=== PATIENT | female | born 1985 | race American Indian/Alaskan Native ===

== ENCOUNTER 2016-06-12 07:25 | Day surgery (SDC) | payer MEDICAID ==
[2016-06-12] MEDS ORDERED: NACL BACTERIOSTATIC INFILTRATI ONE (08:10)
[2016-06-12] MEDS ORDERED: PERCOCET 5/325 PO PRN (08:26)
[2016-06-12] MEDS ORDERED: SUBLIMAZE ONE (08:28)
[2016-06-12] MEDS ORDERED: XYLOCAINE MPF 2% ONE (08:28)
[2016-06-12] MEDS ORDERED: ZOFRAN ONE (08:28)
[2016-06-12] MEDS ORDERED: DECADRON ONE (08:28)
--- NOTE | 2016-06-12 08:28 | Anesthesia Consultation ---
Anesthesia Consult and Med Hx Date of service: 06/12/16 - Airway Anesthetic Teeth Evaluation: Good ROM Head & Neck: Adequate Mental/Hyoid Distance: Adequate Mallampati Class: Class II Intubation Access Assessment: Probably Good - Pulmonary Exam CTA: Yes - Cardiac Exam Cardiac Exam: RRR - Pre-Operative Health Status ASA Pre-Surgery Classification: ASA2 Proposed Anesthetic Plan: General - Pulmonary Hx Smoking: Yes (STOPPED X 7 MONTHS-1 PPD X 10 YRS) Hx Asthma: Yes (INHALER PRN) COPD: No Hx Pneumonia: No Hx Sleep Apnea: No (EVA PRE SCREEN LOW RISK) - Cardiovascular System Hx Hypertension: No Hx Heart Murmur: Yes ("SLIGHT"- CAUSES NO PROBLEMS) - Central Nervous System Hx Psychiatric Problems: No - Gastrointestinal Hx Gastroesophageal Reflux Disease: Yes - Endocrine Hx End Stage Renal Disease: No - Hematic Hx Anemia: Yes - Other Systems Hx Alcohol Use: No Hx Substance Use: Yes (MARIJUANA WEEKLY) Hx Cancer: No
--- NOTE | 2016-06-12 08:28 | Anesthesia Day of Surgery ---
Anesthesia Day of Surgery - Day of Surgery Patient Examined: Yes Patient H&P Reviewed: Yes Patient is NPO: Yes
[2016-06-12] MEDS ORDERED: DIPRIVAN 10 MG/ML IV ONE (08:29)
[2016-06-12 08:37] LABS: Hematocrit 36.4 % (30.3-42.9); Hemoglobin 11.6 gm/dl (10.1-14.3)
[2016-06-12] MEDS ORDERED: ANCEF/STERILE WATER 2 GM/20 ML IV NR (09:00)
[2016-06-12] MEDS ORDERED: NACL 0.9% 1000 ML 1,000 ML IV SCH (09:00)
[2016-06-12] MEDS ORDERED: VERSED IV NR (09:00)
[2016-06-12] MEDS ORDERED: PEPCID PO NR (09:00)
[2016-06-12] MEDS ORDERED: NACL 0.9% IR ONE (09:40)
[2016-06-12] MEDS ORDERED: WATER FOR IRRIG STERILE IR ONE (09:40)
[2016-06-12] MEDS ORDERED: SORBITOL-MANNITOL IRRIG IR ONE (09:40)
[2016-06-12] MEDS ORDERED: OMNIPAQUE 300 MG/50 ML (CATH LAB) IV ONE (09:40)
--- NOTE | 2016-06-12 10:07 | Post Operative Note ---
Pre-op diagnosis: bladder tumor Post-op diagnosis: same Findings: 3 -4 cm bladder tumor Procedure: cysto rpgs turbt Anesthesia: GETA Surgeon: ELGIN PRADO Estimated blood loss: minimal Pathology: list (bladder) Specimen disposition: to lab Condition: stable Disposition: PACU
--- NOTE | 2016-06-12 10:08 | Discharge Summary ---
Short Stay Discharge Plan Activity: other (no straining ) Weight Bearing Status: Full Weight Bearing Diet: regular, low fat, low cholesterol, low salt Special Instructions: other (inc fluids ) Durable Medical Equipment Needed Upon Discharge: other (barajas care instructions ) Follow up with: BRITNEY ROMAN MD [Primary Care Provider] - 7 Days ELGIN PRADO MD [Staff Physician] - 7 Days
[2016-06-12] MEDS: DILAUDID IV PRN ×2 (10:24→10:35)
[2016-06-12] MEDS ORDERED: VERSED IV ONE (10:42)
[2016-06-12] MEDS ORDERED: DILAUDID ONE (10:48)
[2016-06-12] MEDS ORDERED: NACL 0.9% IR SCH (11:00)
[2016-06-12] MEDS: MORPHINE IV PRN ×2 (11:10→11:40)
--- NOTE | 2016-06-12 11:44 | Post Anesthesia Evaluation ---
- Post Anesthesia Evaluation Patient Participated: Yes Airway Patent: Yes Stable Respiratory Function: Yes Nausea/Vomiting: No Temp > 96.8F: Yes Pain Manageable: Yes Adequeate Hydration: Yes Anesthesia Complications: No Block Receding Appropriately: Not Applicable Patient on Ventilator: No
--- NOTE | 2016-06-12 11:49 | Fluoroscopy Report ---
RETROGRADE PYELOGRAM: History: Bladder mass. There is adequate filling of the ureters and intrarenal collecting systems with no filling defects or anatomic abnormalities identified.
--- NOTE | 2016-06-12 12:06 | Operative Report ---
PREOPERATIVE DIAGNOSES: Bladder tumor, history of some sort of Mullerian remnant. POSTOPERATIVE DIAGNOSES: Bladder tumor, history of some sort of Mullerian remnant. PROCEDURE: Cystoscopy, transurethral resection of bladder tumor, retrograde. SURGEON: Titi Baxter MD ANESTHESIA: General. FINDINGS: This is a woman who has a tumor in the back wall invading her bladder. It seemed like it came externally. It almost seemed like fibroids. It is in the posterior towards the left lateral wall of the bladder. It is above the trigone. She now presents for resection. She had intermittent hematuria. DESCRIPTION OF PROCEDURE: The patient was brought to the operating room and placed on the operating table. Following induction of anesthesia, placed in lithotomy position, prepped and draped in usual sterile fashion. Cystourethroscopy showed a lobulated, smooth epithelium mildly cystic lesion above the left orifice. This was about 3 cm well away from the orifice towards the left lateral and posterior wall. It extended towards the dome. It was resected down to muscle. It appears to be solid, almost fibrotic lesion. It did not bleed much. It was cauterized with the ball electrode. Chips were evacuated out with the ERCOM evacuator. Clearly, it extended through the wall of the bladder. The patient tolerated the procedure well. There were no complications. She has a 3-way 22 Garcia draining clear. She will be discharged with Garcia catheter. Family notified. JOB# [id number] LANI/BLUE
[2016-06-12] MEDS ORDERED: TORADOL IV PRN ×2 (13:04→13:30)
[2016-06-12 16:00] VITALS: BP 138/79
== END 2016-06-12 15:25 | disposition home or self-care (01) ==
LOC: OR 07:25
PROVIDERS: ATTEND Urology
DX: D30.3 Benign neoplasm of bladder (principal); N94.89 Other specified conditions associated with female genital organs and menstrual cycle; J45.909 Unspecified asthma, uncomplicated; Z87.891 Personal history of nicotine dependence; K21.9 Gastro-esophageal reflux disease without esophagitis
CPT/HCPCS: 36415; 52235; 74420; 85014; 85018; 88305; A4217; C1758; J0690; J1100; J1170; J1885; J2250; J2270; J2405; J2704; J3010; J7030; Q9967

== ENCOUNTER 2019-04-14 05:54 | Day surgery (SDC) | payer MEDICAID ==
[~2019-04-14 05:54] MED LIST: ceFAZolin/STERILE WATER 2 GM/20 ML SYRINGE IV NR
[2019-04-14] MEDS ORDERED: LACTATED RINGERS 1,000 ML IV SCH (06:00)
[2019-04-14] MEDS ORDERED: MIDAZOLAM 2 MG/2 ML INJ IV NR (06:00)
--- NOTE | 2019-04-14 07:23 | Anesthesia Consultation ---
Anesthesia Consult and Med Hx Date of service: 04/14/19 - Airway Anesthetic Teeth Evaluation: Good ROM Head & Neck: Adequate Mental/Hyoid Distance: Adequate Mallampati Class: Class I Intubation Access Assessment: Good - Pulmonary Exam CTA: Yes - Cardiac Exam Cardiac Exam: RRR - Pre-Operative Health Status ASA Pre-Surgery Classification: ASA2 Proposed Anesthetic Plan: General - Pulmonary Hx Smoking: Yes (QUIT 3 MONTHS AGO) Hx Asthma: Yes (no recent inhaler use) Hx Respiratory Symptoms: No Hx Sleep Apnea: No (EVA PRE SCREEN LOW RISK) - Cardiovascular System Hx Hypertension: No Hx Heart Attack/AMI: No - Central Nervous System Hx Seizures: Yes (last seizure 3mos ago; no meds) Hx Back Pain: Yes (ALSO NECK PAIN) Hx Psychiatric Problems: Yes (PTSD; anx/depression) - Gastrointestinal Hx Gastroesophageal Reflux Disease: Yes (asymptomatic today) - Endocrine Hx Renal Disease: No Hx Liver Disease: No Hx Insulin Dependent Diabetes: No Hx Non-Insulin Dependent Diabetes: No Hx Thyroid Disease: No - Other Systems Hx Cancer: No (BLADDER TUMOR BENIGN) Hx Obesity: No
--- NOTE | 2019-04-14 07:23 | Anesthesia Day of Surgery ---
Anesthesia Day of Surgery - Day of Surgery Patient Examined: Yes Patient H&P Reviewed: Yes Patient is NPO: Yes
[2019-04-14] MEDS ORDERED: PHENYLEPHRINE/NS 1,000 MCG/10 ML SYRINGE (OR USE) IV ONE (07:40)
[2019-04-14] MEDS ORDERED: ONDANSETRON 4 MG/2 ML INJ ONE (07:40)
[2019-04-14] MEDS ORDERED: SUCCINYLCHOLINE CHLORIDE 200 MG/10 ML INJ MDV ONE (07:40)
[2019-04-14] MEDS ORDERED: dexAMETHasone 20 MG/5 ML VIAL ONE (07:40)
[2019-04-14] MEDS ORDERED: LIDOCAINE MPF (2%) 20 MG/1 ML VIAL 5 ML ONE (07:40)
[2019-04-14] MEDS ORDERED: GLYCOPYRROLATE 0.4 MG/2 ML INJ ONE (07:40)
[2019-04-14] MEDS ORDERED: PROPOFOL 200 MG/20 ML VIAL IV ONE ×2 (07:40→08:25)
[2019-04-14] MEDS ORDERED: fentaNYL 100 MCG/2 ML INJ ONE (07:40)
[2019-04-14] MEDS ORDERED: WATER FOR IRRIG STERILE 2000 ML IR ONE (09:00)
--- NOTE | 2019-04-14 09:11 | Short Stay Summary ---
Short Stay Documentation Date of service: 04/14/19 Narrative H&P: 34 yr old female with hx of bladder mass - History Past Medical History: other (bladder mass) Past Surgical History: Other (turbt - Dr. Baxter in past) - Allergies and Medications Current Medications: Allergies codeine Allergy (Verified 04/11/19 16:56) Shortness of Breath hydrocodone bitartrate [From Vicodin] Allergy (Verified 01/18/16 10:57) increased heart rate, anxiety Home Medications Medication Instructions Recorded Confirmed Last Taken Type ALBUTEROL Inhaler (OR & NICU) 2 puff IH PRN PRN 02/20/14 04/11/19 06/10/16 History [ProAir HFA Inhaler] Omeprazole Magnesium [PriLOSEC Otc] 20 mg PO QDAY 06/08/16 04/11/19 06/11/16 History Zyrtec 10mg tab 10 mg PO DAILY 04/11/19 04/11/19 Unknown History Active Medications Cefazolin Sodium (Ancef/Sterile Water 2 Gm/20 Ml) 2 gm IV PREOP NR Stop: 04/14/19 23:59 Fentanyl (Sublimaze) 50 mcg IV Q5MIN PRN PRN Reason: Pain , Severe (7-10) Stop: 04/14/19 20:00 Lactated Ringer's (Lactated Ringers) 1,000 mls @ 100 mls/hr IV DIRECT SVEN Midazolam HCl (Versed) 2 mg IV PREOP NR Stop: 04/14/19 23:59 - Physical exam General appearance: no acute distress, well-nourished Integumentary: no rash, no growths HEENT: Atraumatic, PERRLA Lungs: Clear to auscultation Breasts: deferred Heart: Regular rate, No murmurs Gastrointestinal: normal Female Genitourinary: normal Rectal Exam: deferred Extremities: no ischemia, No edema Neurological: Normal gait - Brief post op/procedure progress note Date of procedure: 04/14/19 Pre-op diagnosis: bladder mass Post-op diagnosis: same Procedure: cysto, rpg, TURBT Anesthesia: GETA Surgeon: LV BULLOCK Estimated blood loss: minimal Pathology: list (BLADDER MASS) Specimen disposition: to lab Condition: stable - Hospital course Hospital course: PERCOCET (PT STATES SHE CAN TAKE PERCOCET), CIPRO ON CHART - Disposition Condition at discharge: Stable Disposition: DC-01 TO HOME OR SELFCARE Short Stay Discharge Plan Follow up with: BRITNEY ROMAN MD [Primary Care Provider] - 7 Days
[2019-04-14] MEDS: fentaNYL 100 MCG/2 ML INJ IV PRN ×2 (09:21→09:28)
[2019-04-14] MEDS ORDERED: oxyCODONE /ACETAMINOPHEN 5-325MG TAB PO PRN (09:26)
--- NOTE | 2019-04-14 09:27 | Operative Report ---
PREOPERATIVE DIAGNOSIS: Bladder mass. POSTOPERATIVE DIAGNOSIS: Bladder mass. PROCEDURE: TUR bladder tumor cystoscopy, bilateral retrograde pyelograms. SURGEON: Hong Marcum MD. ANESTHESIA: General. ESTIMATED BLOOD LOSS: Minimal. FLUIDS: Crystalloid. COMPLICATIONS: No complications. INDICATIONS: This patient is a 34-year-old female seen in the office with history of bladder mass. Last scope was done by Dr. Baxter and apparently the path revealed a Mllerian remnant. She missed her last scope and presents now for cystoscopy under anesthesia for removal of the mass and possible biopsy. Risks, benefits, and complications were explained. The patient has also seen Dr. Erasmo Gonsalves and Luisito Dean in the past. DESCRIPTION OF PROCEDURE: The patient was taken to the operative suite, placed in a supine position. After adequate general anesthesia, placed in a dorsal lithotomy position, prepped and draped in a sterile fashion. Pancystourethroscopy was performed with a 22-Swiss Storz cystoscope. Obvious mass could be appreciated in the left side of the bladder wall. Both ureteral orifices in normal position. It was in the similar position as previously noted by Dr. Baxter when I reviewed his note. No other abnormalities could be appreciated. Bilateral retrograde pyelograms were obtained with an 8-Swiss Augusta catheter and 8 mL of contrast. No filling defects or obstruction. Next, using a 24-Swiss resectoscope with a cutting and coag on 130 and 60 transurethral resection of this mass was performed in a systematic fashion. I was able to take down the mass, cauterized the base, was getting a little thin and therefore, I decided to leave a Garcia catheter afterwards. Chips were evacuated out. Adequate hemostasis was achieved. An 18-Swiss Garcia catheter was left indwelling. She was extubated and taken to recovery room. She will go home on Percocet (she states she can take Percocet and Cipro). JOB# [id number] [facility]/NTS
[2019-04-14] MEDS: HYDROmorphone 1 MG/1 ML INJ IV PRN ×2 (10:06→10:17)
--- NOTE | 2019-04-14 11:06 | Post Anesthesia Evaluation ---
- Post Anesthesia Evaluation Patient Participated: Yes Airway Patent: Yes Stable Respiratory Function: Yes Nausea/Vomiting: No Temp > 96.8F: Yes Pain Manageable: Yes Adequeate Hydration: Yes Anesthesia Complications: No
[2019-04-14 11:42] VITALS: BP 125/83
--- NOTE | 2019-04-14 15:47 | Fluoroscopy Report ---
FLUOROSCOPY RETROGRADE UROGRAPHY HISTORY: Bladder mass COMPARISON: 06/12/2016. FINDINGS: 9 seconds of fluoroscopy time was provided by radiology during retrograde urography by the urologist. 5 fluoroscopic images are presented demonstrating a normal-appearing renal collecting syst ems bilaterally. No filling defects or abnormal dilatation is identified. IMPRESSION: Retrograde pyelograms within normal limits. Signer Name: Dexter Hickman Jr, MD Signed: 04/14/2019 3:43 PM Workstation Name: [id number]
== END 2019-04-14 11:35 | disposition home or self-care (01) ==
LOC: OR 05:54
PROVIDERS: ATTEND Urology
DX: N32.89 Other specified disorders of bladder (principal); N30.80 Other cystitis without hematuria; J45.909 Unspecified asthma, uncomplicated; K21.9 Gastro-esophageal reflux disease without esophagitis; F41.9 Anxiety disorder, unspecified; F32.9 Major depressive disorder, single episode, unspecified; Z90.710 Acquired absence of both cervix and uterus; Z88.8 Allergy status to other drugs, medicaments and biological substances; Z79.899 Other long term (current) drug therapy; Z87.891 Personal history of nicotine dependence; Z98.890 Other specified postprocedural states; Z98.891 History of uterine scar from previous surgery; Z90.721 Acquired absence of ovaries, unilateral; Z87.440 Personal history of urinary (tract) infections; Z90.49 Acquired absence of other specified parts of digestive tract; Z82.49 Family history of ischemic heart disease and other diseases of the circulatory system; Z86.2 Personal history of diseases of the blood and blood-forming organs and certain disorders involving the immune mechanism
CPT/HCPCS: 36415; 52234; 74420; 84132; 88305; A4217; C1758; J0330; J0690; J1100; J1170; J2250; J2370; J2405; J2704; J3010; J7120; Q9967; 88307

== ENCOUNTER 2020-04-08 13:39 | Outpatient (CLI) | payer OTHER ==
--- NOTE | 2020-04-08 15:41 | XRay Report ---
HISTORY:RT ANKLE PAIN COMPARISON: None. TECHNIQUE: AP lateral views were obtained FINDINGS: Bones: Evidence of open reduction internal fixation of a complex femoral and distal fibular fracture Joint spaces: Maintained. Soft tissues: No significant abnormality. Additional findings: None. IMPRESSION: 1. No significant abnormality. Please see comments Signer Name: Dave Medina MD Signed: 04/08/2020 3:37 PM Workstation Name: [id number]
== END 2020-04-08 13:40 | disposition home or self-care (01) ==
LOC: XRAY 13:39
PROVIDERS: ATTEND Internal Medicine
DX: M25.571 Pain in right ankle and joints of right foot (principal)